=== PATIENT | female | born 1995 | race Caucasian/White ===

== ENCOUNTER 2016-09-16 11:49 | Emergency (ER) | payer OTHER ==
[~2016-09-16] VITALS: Ht 175.3 cm; Wt 85.0 kg
[2016-09-16 11:52] VITALS: BP 126/86; PULSE 132; RESP 20; TEMP 99; O2SAT 97
--- NOTE | 2016-09-16 14:38 | PD ---
HPI Chief Complaint: GI Complaint Time Seen by Provider: 14:38 Travel History International Travel<30 days: No Contact w/Intl Traveler<30days: No Traveled to known affect area: No History of Present Illness HPI 20-year-old female presents to the ED for evaluation of four-day history of abdominal cramping, nausea, vomiting, watery diarrhea, chills, dull headache, body aches. Gradual onset. Accompanied by anorexia, malaise. The patient denies ear pain, sinus congestion, sore throat, chest pain, cough, shortness of breath, dysuria, urinary urgency, back pain. She denies review of receiving this years flu shot. She denies sick contacts. She denies risk of , states that she is not sexually active. She's been treating at home with generic Tylenol. PFSH Past Medical History ?: Not LMP: AUG 2016 Social History Alcohol Use: No Tobacco Use: No Allergies-Medications (Allergen,Severity, Reaction): Coded Allergies: Penicillin (Verified Allergy, Unknown, 09/16/16) Reported Meds & Prescriptions Reported Meds & Active Scripts Active Zofran Odt (Ondansetron Odt) 4 Mg Tab 4 Mg SL Q12HR PRN Review of Systems Except as stated in HPI: all other systems reviewed are Neg Physical Exam Narrative GENERAL: Well-nourished, well-developed ill-appearing white female in no acute distress. SKIN: Warm and dry. HEAD: Normocephalic. Atraumatic. EYES: No scleral icterus. No injection or drainage. PERRLA. EOMI. ENT: Pearly vargas tympanic membranes bilaterally. Nasal mucosa is moist. Oropharynx without erythema, edema or exudate. NECK: Supple, trachea midline. No JVD or lymphadenopathy. CARDIOVASCULAR: Regular rate and rhythm without murmurs, gallops, or rubs. 2+ DP and radial pulses bilaterally. RESPIRATORY: Breath sounds clear and equal bilaterally. No accessory muscle use. GASTROINTESTINAL: Abdomen soft,, nondistended. Diffuse mild tenderness. Negative Fuentes sign, negative McBurney's and Rovsing sign. + Bowel sounds MUSCULOSKELETAL: No cyanosis, or edema. Patient is ambulatory, moves the extremities spontaneously. BACK: Nontender without obvious deformity. No CVA tenderness. Data Data Last Documented VS Vital Signs Date Time Temp Pulse Resp B/P Pulse Ox O2 Delivery O2 Flow Rate FiO2 2/3/17 17:12 98 09/16/16 14:41 99.9 16 116/69 98 Room Air Orders Complete Blood Count With Diff (09/16/16 14:48) Comprehensive Metabolic Panel (09/16/16 14:48) Urinalysis - C+S If Indicated (09/16/16 14:48) Iv Access Insert/Monitor (09/16/16 14:48) Ondansetron Inj (Zofran Inj) (09/16/16 15:00) Sodium Chlor 0.9% 1000 Ml Inj (Ns 1000 M (09/16/16 14:48) Acetaminophen (Tylenol) (09/16/16 15:00) Influenzae A/B Antigen (09/16/16 14:48) Sodium Chlor 0.9% 1000 Ml Inj (Ns 1000 M (09/16/16 16:30) Labs Laboratory Tests Test 09/16/16 09/16/16 14:56 15:26 White Blood Count 15.3 TH/MM3 Red Blood Count 4.63 MIL/MM3 Hemoglobin 12.6 GM/DL Hematocrit 38.0 % Mean Corpuscular Volume 82.1 FL Mean Corpuscular Hemoglobin 27.2 PG Mean Corpuscular Hemoglobin 33.1 % Concent Red Cell Distribution Width 13.8 % Platelet Count 262 TH/MM3 Mean Platelet Volume 9.0 FL Neutrophils (%) (Auto) 89.0 % Lymphocytes (%) (Auto) 6.2 % Monocytes (%) (Auto) 4.3 % Eosinophils (%) (Auto) 0.2 % Basophils (%) (Auto) 0.3 % Neutrophils # (Auto) 13.6 TH/MM3 Lymphocytes # (Auto) 0.9 TH/MM3 Monocytes # (Auto) 0.7 TH/MM3 Eosinophils # (Auto) 0.0 TH/MM3 Basophils # (Auto) 0.1 TH/MM3 CBC Comment DIFF FINAL Differential Comment Sodium Level 136 MEQ/L Potassium Level 4.0 MEQ/L Chloride Level 104 MEQ/L Carbon Dioxide Level 25.3 MEQ/L Anion Gap 7 MEQ/L Blood Urea Nitrogen 9 MG/DL Creatinine 1.01 MG/DL Estimat Glomerular Filtration 71 ML/MIN Rate Random Glucose 82 MG/DL Calcium Level 8.7 MG/DL Total Bilirubin 0.3 MG/DL Aspartate Amino Transf 14 U/L (AST/SGOT) Alanine Aminotransferase 27 U/L (ALT/SGPT) Alkaline Phosphatase 80 U/L Total Protein 7.5 GM/DL Albumin 3.7 GM/DL Urine Color YELLOW Urine Turbidity HAZY Urine pH 5.5 Urine Specific [place] 1.011 Urine Protein NEG mg/dL Urine Glucose (UA) NEG mg/dL Urine Ketones NEG mg/dL Urine Occult Blood TRACE Urine Nitrite NEG Urine Bilirubin NEG Urine Urobilinogen LESS THAN 2.0 MG/DL Urine Leukocyte Esterase MOD Urine RBC 3 /hpf Urine WBC 6 /hpf Urine Squamous Epithelial 5 /hpf Cells Urine Mucus FEW /lpf Microscopic Urinalysis Comment CULT NOT INDICATED MDM Medical Decision Making Medical Screen Exam Complete: Yes Emergency Medical Condition: Yes Differential Diagnosis Viral syndrome versus gastroenteritis versus UTI versus influenza versus dehydration versus electrolyte abnormalities versus other Narrative Course 20-year-old female presents to the ED for evaluation of four day history of abdominal cramping, nausea, vomiting, watery diarrhea, chills, dull headache, body aches. Gradual onset. Accompanied by anorexia, malaise. The patient denies ear pain, sinus congestion, sore throat, chest pain, cough, shortness of breath, dysuria, urinary urgency, back pain. She denies review of receiving this years flu shot. Not sexually active. Vitals reviewed. Patient is tachycardic, febrile on presentation. Physical exam reveals an ill-appearing white female in no acute distress. ENT exam is unremarkable. Abdomen diffusely tender. No Fuentes's, Rovsing's, McBurney signs. IV was established. Patient was administered Zofran, Tylenol, liter of normal saline. CBC: WBC 15.3. Hgb 12.6. CMP: Unremarkable. UA: No culture indicated. Influenza swab: Negative. Recheck of patient reveals resolution of nausea, some improvement of chills and body aches. Temp 99, heart rate 105 on recheck. She was administered a second liter of NS. Heart rate 98 following second liter. She was provided with prescription for 2 mg Zofran 3. She was instructed to eat a bland diet for the next few days, gradually reintroduce new foods, increase fluid intake including Pedialyte, sports drinks, broth, water. We discussed reasons to return to the ED. She indicated understanding of the instructions. She is amenable to plan of care. She is stable and discharged home. Diagnosis Primary Impression: Nausea vomiting and diarrhea Referrals: Primary Care Physician Patient Instructions: Acute Nausea and Vomiting (ED), Diet for Stomach Ulcers and Gastritis (ED), General Instructions Additional Instructions: Rest, hydrate. Increase fluid intake, including Pedialyte, sports drinks, broth, water. Take Zofran as needed for nausea and vomiting. Take 600 mg ibuprofen every 6-8 hours as needed for fever, body aches Eat a bland diet for the next few days, gradually reintroduce new foods. Consider the Brat diet. Follow-up with the primary care provider this week. Return to the ED for worsening of symptoms, or any urgent or emergent medical condition. Med/Other Pt SpecificInfo: Prescription(s) given Scripts Ondansetron Odt (Zofran Odt)4 Mg Tab4 Mg SL Q12HR PRN (Nausea/Vomiting) #3 TAB Ref 0 Prov:Hector Downey MD 09/16/16 Disposition: 01 DISCHARGE HOME Condition: Stable Romelia Lin Sep 16, 2016 14:38
[2016-09-16 14:41] VITALS: BP 116/69; PULSE 118; RESP 16; TEMP 99.9; O2SAT 98
[2016-09-16] MEDS ORDERED: SODIUM CHLOR 0.9% 1000 ML INJ 1,000 ML IV SCH (14:48)
[2016-09-16] MEDS ORDERED: ACETAMINOPHEN 500 MG CPLT PO ONE (15:00)
[2016-09-16] MEDS ORDERED: ONDANSETRON HCL 4 MG/2 ML VIAL IVP ONE (15:00)
[2016-09-16 15:18] LABS: AUTOMATED NEUTROPHIL # 13.6 TH/MM3 (1.8-7.7); BASOPHIL # 0.1 TH/MM3 (0-0.2); BASOPHIL % 0.3 % (0.0-2.0); EOSINOPHIL % 0.2 % (0.0-4.0); HEMO FLAGS DIFF FINAL; LYMPH % 6.2 % (9.0-44.0); LYMPHOCYTE # 0.9 TH/MM3 (1.0-4.8); MEAN CELL VOLUME 82.1 FL (80.0-100.0); MEAN CORPUSCULAR HEMOGLOBIN 27.2 PG (27.0-34.0); MEAN CORPUSCULAR HGB CONC 33.1 % (32.0-36.0); MONO % 4.3 % (0.0-8.0); PLATELET COUNT 262 TH/MM3 (150-450); RED BLOOD COUNT 4.63 MIL/MM3 (4.00-5.30); RED CELL DISTRIBUTION WIDTH 13.8 % (11.6-17.2); WHITE BLOOD COUNT 15.3 TH/MM3 (4.0-11.0)
[2016-09-16 15:34] LABS: ANION GAP 7 MEQ/L (5-15); AST (GOT) 14 U/L (16-38); BICARBONATE 25.3 MEQ/L (21.0-32.0); BLOOD UREA NITROGEN 9 MG/DL (7-18); CHLORIDE 104 MEQ/L (98-107); GLOMERULAR FILTRATION RATE 71 ML/MIN (>89); SODIUM (NA) 136 MEQ/L (136-145)
[2016-09-16 15:37] LABS: ALKALINE PHOSPHATASE 80 U/L (45-117); ALT (GPT) 27 U/L (9-42); TOTAL BILIRUBIN ADULT 0.3 MG/DL (0.2-1.0)
[2016-09-16 16:00] LABS: BLOOD, URINE TRACE (NEG); COMMENT (UR) CULT NOT INDICATED; CULTURE IF INDICATED CULT NOT INDICATED; GLUCOSE,URINE NEG (NEG); KETONE, URINE NEG (NEG); MUCUS URINE FEW /lpf (OCC); NITRITE,URINE NEG (NEG); PH, URINE 5.5 (5.0-8.5); SQUAMOUS EPITHELIAL CELL URINE 5 /hpf (0-5); URINE COLOR YELLOW (YELLW/STRAW)
[2016-09-16] MEDS ORDERED: SODIUM CHLOR 0.9% 1000 ML INJ 1,000 ML IV ONE (16:30)
[2016-09-16] MEDS ORDERED: ZOFR4TAB3 SL (17:06)
== END 2016-09-16 17:37 | disposition home or self-care (01) ==
LOC: NETRI 11:49
DX: R11.2 Nausea with vomiting, unspecified (principal); R19.7 Diarrhea, unspecified; R10.84 Generalized abdominal pain; R51 Headache; M79.1 Myalgia; R63.0 Anorexia; R53.81 Other malaise
CPT/HCPCS: 80053; 81001; 85025; 87804; 96361; 96374; 99284; J2405; J7030